=== PATIENT | female | born 1975 | race Caucasian/White ===

== ENCOUNTER 2021-09-21 05:35 | Outpatient (CLI) | payer MEDICAID ==
[~2021-09-21] VITALS: Ht 167.7 cm; Wt 104.5 kg
[2021-09-23] MEDS ORDERED: OMG1KC PO (16:40)
[2021-09-23] MEDS ORDERED: CALC-308 PO (16:40)
[2021-09-23] MEDS ORDERED: MULT-974 PO (16:40)
== END 2021-09-23 16:43 | disposition home or self-care (01) ==
LOC: PREOP 05:35
PROVIDERS: ATTEND Obstetrics & Gynecology
DX: Z01.818 Encounter for other preprocedural examination (principal)

== ENCOUNTER 2021-09-28 07:48 | Day surgery (SDC) | payer MEDICAID ==
[~2021-09-28] VITALS: Ht 167.6 cm; Wt 104.5 kg
[2021-09-28] VITALS (12 sets, daily range): BP systolic 96–129; BP diastolic 57–90
[~2021-09-28 07:48] MED LIST: CALC-308 PO; MULT-974 PO; OMG1KC PO
[2021-09-28] MEDS ORDERED: LACTATED RINGERS 1,000 ML IV PRN (08:15)
[2021-09-28] MEDS ORDERED: BUPIVACAINE 0.25% 30 ML (SENSORCAINE) VIAL ONE (08:19)
[2021-09-28 09:01] LABS: BASOPHILS # (AUTO) 0.1 10^3/uL (0.0-0.1); BASOPHILS % (AUTO) 1 % (0-10); EOSINOPHILS # (AUTO) 0.6 10^3/uL (0.0-0.3); EOSINOPHILS % (AUTO) 7 % (0-10); HEMATOCRIT 31 % (35-52); LYMPHOCYTES # (AUTO) 1.7 10^3/uL (1.0-4.0); LYMPHOCYTES % (AUTO) 20 % (12-44); MEAN CORPUSCULAR HEMOGLOBIN 20 pg (25-34); MEAN CORPUSCULAR HGB CONC 29 g/dL (32-36); MEAN CORPUSCULAR VOLUME 68 fL (80-99); MEAN PLATELET VOLUME 10.3 fL (9.0-12.2); MONOCYTES # (AUTO) 0.5 10^3/uL (0.0-1.0); MONOCYTES % (AUTO) 6 % (0-12); NEUTROPHILS # (AUTO) 5.5 10^3/uL (1.8-7.8); NEUTROPHILS % (AUTO) 65 % (42-75); PLATELET COUNT 315 10^3/uL (130-400); WHITE BLOOD COUNT 8.5 10^3/uL (4.3-11.0)
[2021-09-28] MEDS ORDERED: SEVOFLURANE (ULTANE) 15 ML INHAL SOLN ONE (09:16)
[2021-09-28] MEDS ORDERED: proPOfol 200 MG/20 ML (DIPRIVAN) VIAL IV ONE (09:16)
[2021-09-28] MEDS ORDERED: ONDANSETRON 4 MG/2 ML (SDV) Z0FRAN ONE (09:16)
[2021-09-28] MEDS ORDERED: LIDOCAINE PF 2% 5 ML (XYLOCAINE) VIAL ONE (09:16)
[2021-09-28] MEDS ORDERED: fentaNYL INJ 100 MCG/2 ML AMP ONE (09:17)
[2021-09-28] MEDS ORDERED: MIDAZOLAM 2 MG/2 ML (VERSED) VIAL ONE (09:17)
--- NOTE | 2021-09-28 09:26 | Discharge Inst-Women's Service ---
Discharge Inst-Women's Serv Depart Medication/Instructions New, Converted or Re-Newed RX: Other (OTC ibuprophen) Problems Reviewed?: Yes Consults/Follow Up Additional Follow Up: Yes Orders/Referrals Dr. Beach in 7-10 days Activity Activity: Activity as Tolerated Driving Instructions: No Driving for 1 Week NO SMOKING: NO SMOKING Nothing Inside Vagina: No Douching, No [place], No Tampons Diet Discharge Diet: No Restrictions Symptoms to Report to : Bleeding Excessive, Pain Increased, Fever Over 101 Degrees F, Vaginal Bleeding Increase, Questions/Concerns For Any Problems or Questions: Contact Your Physician PA BEACH DO Sep 28, 2021 09:26
--- NOTE | 2021-09-28 09:27 | Progress Note-Pre Operative ---
Pre-Operative Progress Note Date of Available H&P: Sep 28, 2021 Date H&P Reviewed: Sep 28, 2021 Time H&P Reviewed: 09:15 History & Physical: H&P Reviewed, Patient Examed, No changes noted Changes from last HP none Pre-Operative Diagnosis: PA BURTON DO Sep 28, 2021 09:27
[2021-09-28] MEDS ORDERED: KETOROLAC 30 MG/ML VIAL IVP ONE ×2 (09:30→10:00)
[2021-09-28] MEDS ORDERED: HYDROcodone/APAP 5 MG/325 MG (LORTAB) TAB PO PRN (09:30)
[2021-09-28] MEDS ORDERED: ONDANSETRON 4 MG/2 ML (SDV) Z0FRAN IVP PRN ×2 (09:30→10:00)
[2021-09-28] MEDS ORDERED: D5 LR IV SOLUTION 1,000 ML IV SCH (09:30)
--- NOTE | 2021-09-28 09:59 | Anesthesia-General Post-Op ---
General Patient Condition Mental Status/LOC: Same as Preop Cardiovascular: Satisfactory Nausea/Vomiting: Absent Respiratory: Satisfactory Pain: Controlled Complications: Absent Post Op Complications Complications None Follow Up Care/Instructions Patient Instructions None needed. Anesthesia/Patient Condition Patient Condition Patient is doing well, no complaints, stable vital signs, no apparent adverse anesthesia problems. No complications reported per nursing. GÓMEZ COURTNEY CRNA Sep 28, 2021 09:59
[2021-09-28] MEDS ORDERED: morphine INJ 10 MG/ML 1ML (SYR OR VIAL) IVP ONE (10:00)
--- NOTE | 2021-09-28 16:16 | OPERATIVE REPORT ---
DATE OF SERVICE: PREOPERATIVE DIAGNOSES: A 46-year-old female with abnormal uterine bleeding. POSTOPERATIVE DIAGNOSES: A 46-year-old female with abnormal uterine bleeding. PROCEDURE: D and C. SURGEON: Pa Beach DO ANESTHESIA: LMA general. ESTIMATED BLOOD LOSS: Minimal. URINE OUTPUT: 50 mL drained at start of procedure. FLUIDS: 800 mL lactated Ringer's solution. FINDINGS: Grossly normal appearing external female genitalia and a copious amount of endometrial tissue. SPECIMEN SENT: Endometrial curettings. INDICATIONS FOR PROCEDURE: This 46-year-old female is a patient, who sought my care due to abnormal bleeding and change in bleeding pattern. Due to her age, and endometrial sampling was indicated as well as thickened endometrium on ultrasound identified. I discussed with the patient possible risk of the procedure as well as its diagnostic properties, risks of procedure including damage to the uterus, postoperative complications that may occur, recovery timeframe, risk from anesthesia. After everything was discussed with the patient in detail, consent was obtained in the preoperative area, the patient was then taken to the operating room. OPERATIVE REPORT IN DETAIL: Once in the operating room, general anesthesia was found to be adequate. She was placed in the dorsal lithotomy position, prepped and draped in normal sterile fashion. A timeout was performed. A weighted speculum inserted to the patient's vagina. Right angle retractor was used to visualize the cervix, which was grasped at 12 o'clock position using a long Allis clamp. I then performed paracervical block at 3 and 9 o'clock positions on the cervix. Care was taken to aspirate for injecting 5 mL of 0.25% Marcaine are injected into each site. I then gently sound the uterine cavity, depth was found to be 8 cm. I then gently dilated the cervix using Hanks dilators to maximum dilatation of 1 cm, at which point I performed a gentle curettage of the endometrial surfaces. All the endometrial surfaces are curetted until a gentle uterine cry is appreciated. This tissue was then collected and sent as endometrial curettings. There was no active bleeding noted from the cervix at that point. I then removed all other instruments from the patient's vagina. The patient tolerated the procedure well and sent to recovery area in stable condition. Lap, lap and sponge counts were correct at the end of procedure. Instrument counts correct as well. Job ID: [id number] DocumentID: [id number] Dictated Date: 09/28/2021 10:02:52 [employer] Date: 09/28/2021 16:15:12 Dictated By: PA BEACH DO
== END 2021-09-28 12:10 | disposition home or self-care (01) ==
LOC: SDC 07:48
PROVIDERS: ATTEND Obstetrics & Gynecology
DX: N93.8 Other specified abnormal uterine and vaginal bleeding (principal); E66.9 Obesity, unspecified; Z68.37 Body mass index [BMI] 37.0-37.9, adult
CPT/HCPCS: 36415; 84703; 85025; 86850; 86900; 86901; 87081; 94664